=== PATIENT | female | born 1975 | race American Indian/Alaskan Native ===

== ENCOUNTER 2017-03-13 13:33 | Emergency (ER) | payer OTHER ==
[2017-03-13 14:03] VITALS: BP 153/98
--- NOTE | 2017-03-13 16:46 | Emergency Department Report ---
ED General Adult HPI - General Chief complaint: Adult Asthma Stated complaint: ASTHMA/SEVERE HEADACHE Time Seen by Provider: 03/13/17 16:35 Source: patient Mode of arrival: Ambulatory Limitations: No Limitations - History of Present Illness Initial comments: PT c/o asthma exacerbation x 2 days. PT states she has been coughing and wheezing and she can not sleep at night due to the coughing. PT does report post tussive emesis Pt states no relief with singular or inhaler PT states she does not know if she is . Complaint: asthma -: Gradual, days(s) Location: head, chest Consistency: constant Improves with: none Worsens with: none Associated Symptoms: cough, nausea/vomiting. denies: fever/chills Treatments Prior to Arrival: none - Related Data Home Medications Medication Instructions Recorded Confirmed Last Taken Ferrous Sulfate [Ferrous Sulfate 325 mg PO DAILY 03/19/13 01/27/15 03/17/13 12: 00 Oral Liq 220 Mg/5 Ml] Losartan [Cozaar] 50 mg PO QDAY 01/27/15 01/27/15 1 Day Ago Previous Rx's Medication Instructions Recorded Last Taken Type Labetalol [Normodyne TAB] 100 mg PO BID #60 tablet 01/27/15 Unknown Rx Vit-Fe Fumar-FA [ 1 each PO QDAY #30 tablet 01/27/15 Unknown Rx Vitamin] HYDROcodone/APAP 5-325 [[place] 1 each PO Q6HR PRN #6 tablet 03/20/15 Unknown Rx 5/325] Phenazopyridine [Pyridium] 100 mg PO TID #15 tab 03/20/15 Unknown Rx Sulfamethoxazole/Trimethoprim 1 each PO BID #6 tablet 03/20/15 Unknown Rx [Bactrim DS TAB] Allergies Allergy/AdvReac Type Severity Reaction Status Date / Time ibuprofen Allergy Severe Angioedema Verified 03/20/15 01:27 propoxyphene HCl Allergy Unknown Verified 03/19/13 13:39 [From Darvon] codeine AdvReac Intermediate Itching Verified 03/20/15 01:27 ED Review of Systems ROS: Stated complaint: ASTHMA/SEVERE HEADACHE Other details as noted in HPI Comment: All other systems reviewed and negative Constitutional: denies: chills, fever ENT: denies: ear pain, throat pain, congestion Respiratory: cough, shortness of breath, wheezing Cardiovascular: denies: edema Gastrointestinal: denies: abdominal pain Genitourinary: other (pt states she is unsure if she is ) Neurological: headache ED Past Medical Hx - Past Medical History Previous Medical History?: Yes Hx Hypertension: Yes (after last preg) Hx Congestive Heart Failure: No Hx Diabetes: No Hx Asthma: Yes Hx COPD: No - Surgical History Past Surgical History?: Yes Additional Surgical History: laproscopy - Social History Smoking Status: Never Smoker Substance Use Type: None - Medications Home Medications: Home Medications Medication Instructions Recorded Confirmed Last Taken Type Ferrous Sulfate [Ferrous Sulfate 325 mg PO DAILY 03/19/13 01/27/15 03/17/13 12: 00 History Oral Liq 220 Mg/5 Ml] Labetalol [Normodyne TAB] 100 mg PO BID #60 tablet 01/27/15 Unknown Rx Losartan [Cozaar] 50 mg PO QDAY 01/27/15 01/27/15 1 Day Ago History Vit-Fe Fumar-FA [ 1 each PO QDAY #30 tablet 01/27/15 Unknown Rx Vitamin] HYDROcodone/APAP 5-325 [[place] 1 each PO Q6HR PRN #6 tablet 03/20/15 Unknown Rx 5/325] Phenazopyridine [Pyridium] 100 mg PO TID #15 tab 03/20/15 Unknown Rx Sulfamethoxazole/Trimethoprim 1 each PO BID #6 tablet 03/20/15 Unknown Rx [Bactrim DS TAB] ED Physical Exam - General Limitations: No Limitations General appearance: alert, in no apparent distress - Head Head exam: Present: atraumatic, normocephalic, normal inspection - Expanded Head Exam Expanded Head exam: Absent: contusion, hematoma - Eye Eye exam: Present: normal appearance, PERRL, EOMI. Absent: conjunctival injection Pupils: Present: normal accommodation - ENT ENT exam: Present: normal orophraynx, mucous membranes moist, TM's normal bilaterally, normal external ear exam, other (clear post nasal drainage ) - Neck Neck exam: Present: normal inspection, full ROM. Absent: tenderness, lymphadenopathy - Respiratory Respiratory exam: Present: wheezes, chest wall tenderness. Absent: rales, rhonchi, accessory muscle use - Cardiovascular Cardiovascular Exam: Present: regular rate, normal rhythm, normal heart sounds - GI/Abdominal GI/Abdominal exam: Present: soft. Absent: tenderness, guarding, rebound - Extremities Exam Extremities exam: Present: normal inspection, full ROM - Back Exam Back exam: Present: normal inspection, full ROM. Absent: tenderness, CVA tenderness (R), CVA tenderness (L) - Neurological Exam Neurological exam: Present: alert, oriented X3, CN II-XII intact, normal gait - Expanded Neurological Exam Expanded Patient oriented to: Present: person, place, time Speech: Present: fluid speech Best Eye Response ([place]): (4) open spontaneously Best Motor Response ([place]): (6) obeys commands Best Verbal Response ([place]): (5) oriented [place] Total: 15 - Psychiatric Psychiatric exam: Present: normal affect, normal mood - Skin Skin exam: Present: warm, dry, intact, normal color ED Course Vital Signs 03/13/17 14:00 Temperature 99 F Pulse Rate 63 Respiratory 18 Rate Blood Pressure 153/98 O2 Sat by Pulse 100 Oximetry - Reevaluation(s) Reevaluation #1: 03/13/17 16:50 PT aware we will obtain test prior to medication administration Reevaluation #2: 03/13/17 17:26 PT aware of urine results. Reevaluation #3: 03/13/17 18:05 Informed that pt left the ED. - Pulse Oximetry Interpretation Digit-Finger Initial Pulse Oximetry Readin Actions Taken: none ED Medical Decision Making - Differential Diagnosis , uri, asthma Critical Care Time: No Critical care attestation.: If time is entered above; I have spent that time in minutes in the direct care of this critically ill patient, excluding procedure time. ED Disposition Clinical Impression: Cough Disposition: DC-07 LEFT AGAINST MED ADVICE Is pt being admited?: No Does the pt Need Aspirin: No Condition: Undetermined Referrals: PRIMARY CARE, [Primary Care Provider] - 3-5 Days Forms: AMA Form
[2017-03-13 17:17] LABS: Bilirubin,Urine NEG (Negative); Blood,Urine NEG (Negative); Ketones,Urine NEG (Negative); Leukocyte Esterase,Urine TR (Negative); Mucus,Urine FEW /HPF; Nitrite,Urine NEG (Negative); Protein,Urine <15 mg/dL mg/dL (Negative); Urobilinogen,Urine < 2.0 mg/dL (<2.0)
[2017-03-13] MEDS ORDERED: DUONEB *Not for PRN Use IH ONE (17:25)
[2017-03-13] MEDS ORDERED: DELTASONE PO ONE (17:25)
[2017-03-13] MEDS ORDERED: TYLENOL PO ONE (17:25)
== END 2017-03-13 17:41 | disposition left against medical advice (07) ==
LOC: ED 13:33
DX: R05 Cough (principal); I10 Essential (primary) hypertension; J45.901 Unspecified asthma with (acute) exacerbation; Z88.6 Allergy status to analgesic agent; Z88.5 Allergy status to narcotic agent; Z88.8 Allergy status to other drugs, medicaments and biological substances
CPT/HCPCS: 81001; 81025; 99283

== ENCOUNTER 2017-03-14 08:17 | Emergency (ER) | payer OTHER ==
[2017-03-14 08:33] VITALS: BP 146/96
--- NOTE | 2017-03-14 10:24 | Emergency Department Report ---
ED General Adult HPI - General Chief complaint: Adult Asthma Stated complaint: ASTHMA/HEADACHE/COUGHING Time Seen by Provider: 03/14/17 10:07 Source: patient Mode of arrival: Ambulatory Limitations: No Limitations - History of Present Illness Initial comments: Patient is a 41-year-old female past history of asthma who presents with shortness of breath and asthma exacerbation. Patient states that her symptoms have been going on for the last couple days but is gone worse today. She states that she is short of breath and she has a headache. Her headache is a 7 out of 10 it's located bilaterally in the temporal areas and radiates to the front of her head. Nothing seems to make the headache better or worse. It is an achy type of pain. She denies having any nausea or vomiting. She states that she's tried her inhaler today but with no relief. Patient denies having any chest pain. - Related Data Home Medications Medication Instructions Recorded Confirmed Last Taken Ferrous Sulfate [Ferrous Sulfate 325 mg PO DAILY 03/19/13 01/27/15 03/17/13 12: 00 Oral Liq 220 Mg/5 Ml] Losartan [Cozaar] 50 mg PO QDAY 01/27/15 01/27/15 1 Day Ago Previous Rx's Medication Instructions Recorded Last Taken Type Labetalol [Normodyne TAB] 100 mg PO BID #60 tablet 01/27/15 Unknown Rx Vit-Fe Fumar-FA [ 1 each PO QDAY #30 tablet 01/27/15 Unknown Rx Vitamin] HYDROcodone/APAP 5-325 [[place] 1 each PO Q6HR PRN #6 tablet 03/20/15 Unknown Rx 5/325] Phenazopyridine [Pyridium] 100 mg PO TID #15 tab 03/20/15 Unknown Rx Sulfamethoxazole/Trimethoprim 1 each PO BID #6 tablet 03/20/15 Unknown Rx [Bactrim DS TAB] Butalb/Acetamin/Caff 50-325-40 1 tab PO Q6HR PRN #20 tab 03/14/17 Unknown Rx [Fioricet] predniSONE [Deltasone] 20 mg PO BID #10 tablet 03/14/17 Unknown Rx Allergies Allergy/AdvReac Type Severity Reaction Status Date / Time ibuprofen Allergy Severe Angioedema Verified 03/14/17 08:26 propoxyphene HCl Allergy Unknown Verified 03/14/17 08:26 [From Darvon] codeine AdvReac Intermediate Itching Verified 03/14/17 08:26 ED Review of Systems ROS: Stated complaint: ASTHMA/HEADACHE/COUGHING Other details as noted in HPI Constitutional: denies: chills, fever Eyes: denies: eye pain, eye discharge, vision change ENT: denies: ear pain, throat pain Respiratory: shortness of breath. denies: cough, wheezing Cardiovascular: denies: chest pain, palpitations Endocrine: no symptoms reported Gastrointestinal: denies: abdominal pain, nausea, diarrhea Genitourinary: denies: urgency, dysuria, discharge Musculoskeletal: denies: back pain, joint swelling, arthralgia Skin: denies: rash, lesions Neurological: headache. denies: weakness, paresthesias Psychiatric: denies: anxiety, depression Hematological/Lymphatic: denies: easy bleeding, easy bruising ED Past Medical Hx - Past Medical History Hx Hypertension: Yes (after last preg) Hx Congestive Heart Failure: No Hx Diabetes: No Hx Asthma: Yes Hx COPD: No - Surgical History Additional Surgical History: laproscopy - Social History Smoking Status: Never Smoker - Medications Home Medications: Home Medications Medication Instructions Recorded Confirmed Last Taken Type Ferrous Sulfate [Ferrous Sulfate 325 mg PO DAILY 03/19/13 01/27/15 03/17/13 12: 00 History Oral Liq 220 Mg/5 Ml] Labetalol [Normodyne TAB] 100 mg PO BID #60 tablet 01/27/15 Unknown Rx Losartan [Cozaar] 50 mg PO QDAY 01/27/15 01/27/15 1 Day Ago History Vit-Fe Fumar-FA [ 1 each PO QDAY #30 tablet 01/27/15 Unknown Rx Vitamin] HYDROcodone/APAP 5-325 [[place] 1 each PO Q6HR PRN #6 tablet 03/20/15 Unknown Rx 5/325] Phenazopyridine [Pyridium] 100 mg PO TID #15 tab 03/20/15 Unknown Rx Sulfamethoxazole/Trimethoprim 1 each PO BID #6 tablet 03/20/15 Unknown Rx [Bactrim DS TAB] Butalb/Acetamin/Caff 50-325-40 1 tab PO Q6HR PRN #20 tab 03/14/17 Unknown Rx [Fioricet] predniSONE [Deltasone] 20 mg PO BID #10 tablet 03/14/17 Unknown Rx ED Physical Exam - General Limitations: No Limitations General appearance: alert, in no apparent distress - Head Head exam: Present: atraumatic, normocephalic - Eye Eye exam: Present: normal appearance - ENT ENT exam: Present: mucous membranes moist - Neck Neck exam: Present: normal inspection - Respiratory Respiratory exam: Present: normal lung sounds bilaterally, wheezes. Absent: respiratory distress - Cardiovascular Cardiovascular Exam: Present: regular rate, normal rhythm. Absent: systolic murmur, diastolic murmur, rubs, gallop - GI/Abdominal GI/Abdominal exam: Present: soft, normal bowel sounds - Extremities Exam Extremities exam: Present: normal inspection - Back Exam Back exam: Present: normal inspection - Neurological Exam Neurological exam: Present: alert, oriented X3 - Psychiatric Psychiatric exam: Present: normal affect, normal mood - Skin Skin exam: Present: warm, dry, intact, normal color. Absent: rash ED Course Vital Signs 03/14/17 03/14/17 08:26 12:19 Temperature 99.2 F Pulse Rate 57 L Respiratory 18 16 Rate Blood Pressure 146/96 O2 Sat by Pulse 98 Oximetry - Reevaluation(s) Reevaluation #1: 03/14/17 14:15 Patient's shortness of breath has improved and is feeling better we'll send patient home with Fioricet and prednisone. Patient does not need a refill of her inhaler. ED Medical Decision Making - Medical Decision Making Chief medical diagnosis: Asthma exacerbation Differential medical diagnosis: Tension headache, migraine headache We'll give the patient albuterol treatment, prednisone and Fioricet. Patient is feeling better patient had asthma exacerbation and tension headache we'll send patient home with prescription medications and gave patient return precautions come back to the ER. Patient agrees with plan and additional verbal discharge instructions were given. Critical care attestation.: If time is entered above; I have spent that time in minutes in the direct care of this critically ill patient, excluding procedure time. ED Disposition Clinical Impression: Tension headache, Asthma exacerbation Disposition: - TO HOME OR SELFCARE Is pt being admited?: No Does the pt Need Aspirin: No Condition: Stable Instructions: Asthma (ED) Prescriptions: Butalb/Acetamin/Caff 50-325-40 [Fioricet] 1 tab PO Q6HR PRN #20 tab PRN Reason: Headache predniSONE [Deltasone] 20 mg PO BID #10 tablet Referrals: PRIMARY CARE, [Primary Care Provider] - 3-5 Days Time of Disposition: 14:02
[2017-03-14] MEDS ORDERED: PROVENTIL IH ONE (10:52)
[2017-03-14] MEDS ORDERED: DELTASONE PO ONE (10:53)
[2017-03-14] MEDS ORDERED: NORCO 5/325 PO ONE (12:12)
[2017-03-14] MEDS ORDERED: FIORICET PO ONE (12:12)
== END 2017-03-14 14:17 | disposition home or self-care (01) ==
LOC: ED 08:17
DX: J45.901 Unspecified asthma with (acute) exacerbation (principal); G44.209 Tension-type headache, unspecified, not intractable; I10 Essential (primary) hypertension
CPT/HCPCS: 99282; J7512

== ENCOUNTER 2019-04-29 07:59 | Emergency (ER) | payer OTHER ==
[2019-04-29] MEDS ORDERED: IPRATROPIUM/ALBUTEROL SULFATE 3 ML AMPUL.NEB IH ONE (08:05)
[2019-04-29] MEDS ORDERED: ALBUTEROL 2.5 MG/3 ML NEBU IH ONE (08:31)
[2019-04-29] MEDS ORDERED: IPRATROPIUM 0.02% NEBU 2.5 ML IH ONE (08:31)
[2019-04-29] MEDS ORDERED: predniSONE 20 MG TAB PO ONE (08:31)
--- NOTE | 2019-04-29 08:34 | Emergency Department Report ---
ED Asthma HPI - General Chief Complaint: Dyspnea/Respdistress Stated Complaint: COUGHING/SOB Time Seen by Provider: 04/29/19 08:31 Source: patient Mode of arrival: Ambulatory Limitations: No Limitations - History of Present Illness Initial Comments: Mrs. Zarco is a very pleasant 43-year-old female with history of mild intermittent asthma who presents with shortness of breath and nasal congestion. She feels tight as if she can't get enough air. She normally 1 asthma attack mostly at this time of year. She's had shortness of breath since Thursday. Denies fever. She has had asthma since childhood MD Complaint: "asthma attack", shortness of breath -: Gradual Asthma History: childhood onset, history of prior ED visit Severity: moderate Context: recent URI Associated Symptoms: dry cough, other (nasal congestion ) - Related Data Home Medications Medication Instructions Recorded Confirmed Last Taken Ferrous Sulfate [Ferrous Sulfate 325 mg PO DAILY 03/19/13 01/27/15 03/17/13 12:00 Oral Liq 220 Mg/5 Ml] Losartan [Cozaar] 50 mg PO QDAY 01/27/15 01/27/15 1 Day Ago ~01/26/15 Previous Rx's Medication Instructions Recorded Last Taken Type Labetalol [Labetalol 100mg TAB] 100 mg PO BID #60 tablet 01/27/15 Unknown Rx Vit-Fe Fumar-FA [ 1 each PO QDAY #30 tablet 01/27/15 Unknown Rx Vitamin] HYDROcodone/APAP 5-325 [[place] 1 each PO Q6HR PRN #6 tablet 03/20/15 Unknown Rx 5/325] Phenazopyridine [Pyridium] 100 mg PO TID #15 tab 03/20/15 Unknown Rx Sulfamethoxazole/Trimethoprim 1 each PO BID #6 tablet 03/20/15 Unknown Rx [Bactrim DS TAB] Butalb/Acetamin/Caff 50-325-40 1 tab PO Q6HR PRN #20 tab 03/14/17 Unknown Rx [Fioricet] predniSONE [Deltasone] 20 mg PO BID #10 tablet 03/14/17 Unknown Rx ALBUTEROL Inhaler (OR & NICU) 2 puff IH QID PRN #1 device 04/29/19 Unknown Rx [ProAir HFA Inhaler] predniSONE [Deltasone] 3 tab PO QDAY 3 Days #9 tab 04/29/19 Unknown Rx Allergies Allergy/AdvReac Type Severity Reaction Status Date / Time ibuprofen Allergy Severe Angioedema Verified 03/14/17 08:26 propoxyphene HCl Allergy Unknown Verified 03/14/17 08:26 [From [place]] codeine AdvReac Intermediate Itching Verified 03/14/17 08:26 ED Review of Systems ROS: Stated complaint: COUGHING/SOB Other details as noted in HPI Comment: Unobtainable due to pts medical conditions Constitutional: denies: fever, malaise ENT: congestion Respiratory: cough, shortness of breath Cardiovascular: denies: chest pain ED Past Medical Hx - Past Medical History Previous Medical History?: Yes Hx Hypertension: Yes (after last preg) Hx Congestive Heart Failure: No Hx Diabetes: No Hx Asthma: Yes Hx COPD: No - Surgical History Past Surgical History?: Yes Additional Surgical History: laproscopy - Family History Family history: hypertension - Social History Smoking Status: Never Smoker Substance Use Type: None - Medications Home Medications: Home Medications Medication Instructions Recorded Confirmed Last Taken Type Ferrous Sulfate [Ferrous Sulfate 325 mg PO DAILY 03/19/13 01/27/15 03/17/13 12:00 History Oral Liq 220 Mg/5 Ml] Labetalol [Labetalol 100mg TAB] 100 mg PO BID #60 tablet 01/27/15 Unknown Rx Losartan [Cozaar] 50 mg PO QDAY 01/27/15 01/27/15 1 Day Ago History ~01/26/15 Vit-Fe Fumar-FA [ 1 each PO QDAY #30 tablet 01/27/15 Unknown Rx Vitamin] HYDROcodone/APAP 5-325 [[place] 1 each PO Q6HR PRN #6 tablet 03/20/15 Unknown Rx 5/325] Phenazopyridine [Pyridium] 100 mg PO TID #15 tab 03/20/15 Unknown Rx Sulfamethoxazole/Trimethoprim 1 each PO BID #6 tablet 03/20/15 Unknown Rx [Bactrim DS TAB] Butalb/Acetamin/Caff 50-325-40 1 tab PO Q6HR PRN #20 tab 03/14/17 Unknown Rx [Fioricet] predniSONE [Deltasone] 20 mg PO BID #10 tablet 03/14/17 Unknown Rx ALBUTEROL Inhaler (OR & NICU) 2 puff IH QID PRN #1 device 10/11/19 Unknown Rx [ProAir HFA Inhaler] predniSONE [Deltasone] 3 tab PO QDAY 3 Days #9 tab 04/29/19 Unknown Rx ED Physical Exam - General Limitations: No Limitations General appearance: alert, in no apparent distress, other (speaking full word sentences but appears uncomfortable) - Head Head exam: Present: atraumatic, normocephalic - Eye Eye exam: Present: normal appearance - ENT ENT exam: Present: mucous membranes moist - Neck Neck exam: Present: normal inspection, full ROM - Respiratory Respiratory exam: Present: decreased breath sounds, prolonged expiratory. Absent: respiratory distress, wheezes, rales, rhonchi, accessory muscle use - Cardiovascular Cardiovascular Exam: Present: regular rate, normal rhythm, normal heart sounds. Absent: systolic murmur, diastolic murmur, rubs, gallop - GI/Abdominal GI/Abdominal exam: Present: soft, normal bowel sounds. Absent: distended, tenderness, guarding, rebound - Extremities Exam Extremities exam: Present: normal inspection - Back Exam Back exam: Present: normal inspection - Neurological Exam Neurological exam: Present: alert, oriented X3 - Psychiatric Psychiatric exam: Present: normal affect, normal mood - Skin Skin exam: Present: warm, dry, intact, normal color. Absent: rash ED Course Vital Signs 04/29/19 04/29/19 04/29/19 08:08 09:43 09:44 Temperature 98.7 F Pulse Rate 89 Pulse Rate [ 93 H 95 H Posterior Bilateral Throughout] Respiratory 22 Rate Respiratory 22 22 Rate [Posterior Bilateral Throughout] Blood Pressure 113/68 O2 Sat by Pulse 100 Oximetry ED Medical Decision Making - Medical Decision Making Diagnosis mild asthma exacerbation. Clear breath sounds on repeat exam. rx: albuterol MDI, prednisone Critical care attestation.: If time is entered above; I have spent that time in minutes in the direct care of this critically ill patient, excluding procedure time. ED Disposition Clinical Impression: Asthma exacerbation Disposition: DC-01 TO HOME OR SELFCARE Is pt being admited?: No Does the pt Need Aspirin: No Condition: Stable Instructions: Asthma (ED) Prescriptions: predniSONE [Deltasone] 3 tab PO QDAY 3 Days #9 tab ALBUTEROL Inhaler (OR & NICU) [ProAir HFA Inhaler] 2 puff IH QID PRN #1 device PRN Reason: Shortness Of Breath Forms: Work/School Release Form(ED)
[2019-04-29 12:05] VITALS: BP 136/66
== END 2019-04-29 12:02 | disposition home or self-care (01) ==
LOC: ED 07:59
DX: J45.901 Unspecified asthma with (acute) exacerbation (principal)
CPT/HCPCS: 94644; 99282; J7512; 94640

== ENCOUNTER 2019-07-11 12:28 | Emergency (ER) | payer OTHER ==
[2019-07-11] MEDS ORDERED: IPRATROPIUM/ALBUTEROL SULFATE 3 ML AMPUL.NEB IH ONE ×3 (12:40→14:42)
--- NOTE | 2019-07-11 12:52 | Event Note ---
ED Screening Note Date of service: 07/11/19 Time: 12:49 ED Screening Note: C/o SOB and left leg pain x last night +CP hx of asthma, but states this does not feel like here asthma denies hx of DVT/PE, recent long travel, or OCPs sits for extended periods of time No abnormal breath sounds or wheezing noted on exam +dyspnea This initial assessment/diagnostic orders/clinical plan/treatment(s) is/are subject to change based on patients health status, clinical progression and re- assessment by fellow clinical providers in the ED. Further treatment and workup at subsequent clinical providers discretion. Patient/guardian urged not to elope from the ED as their condition may be serious if not clinically assessed and managed. Initial orders include: MAIN labs Dimer US CXR
--- NOTE | 2019-07-11 13:54 | Vascular Lab Report ---
DUPLEX DOPPLER LOWER EXTREMITY VEINS, LEFT INDICATION: Left lower leg pain and shortness of breath since yesterday. TECHNIQUE: Duplex doppler imaging was performed through the veins of the left lower extremity using venous compr ession and other maneuvers. COMPARISON: None available. FINDINGS: Common femoral vein: Negative. Superficial femoral vein: Negative. Popliteal vein: Negative. Calf veins: Negative. Additional findings: There is no evidence of a popliteal cyst or other abnormality. IMPRESSION: No sonographic evidence for DVT in the left lower extremity. Signer Name: Manjit Lee MD Signed: 07/11/2019 1:50 PM Workstation Name: [id number]
[2019-07-11 14:40] LABS: Hematocrit 32.8 % (30.3-42.9); Hemoglobin 10.1 gm/dl (10.1-14.3); Mean Corpuscular HGB Conc 31 % (30-34); Platelet Count 264 K/mm3 (140-440); Red Blood Count 5.25 M/mm3 (3.65-5.03); Red Cell Distribution Width 18.4 % (13.2-15.2)
[2019-07-11 14:46] LABS: Mean Corpuscular Volume 62 fl (79-97)
[2019-07-11 14:58] LABS: Alanine Aminotransferase 9 units/L (7-56); Albumin 4.2 g/dL (3.9-5); BUN/Creatinine Ratio 13; Blood Urea Nitrogen 10 mg/dL (7-17); Calcium 9.2 mg/dL (8.4-10.2); Hemolysis Index 0
--- NOTE | 2019-07-11 15:22 | XRay Report ---
CHEST 2 VIEWS INDICATION: shortness of breath, cough. COMPARISON: None. FINDINGS: Support devices: None. Heart: Enlarged. Pulmonary vasculature: Normal. Lungs/pleura: No acute air space or interstitial disease. No pleural effusion. No pneumothorax. Additional findings: None. IMPRESSION: 1. Cardiomegaly but no CHF. 2. No pneumonia. Signer Name: Breezy Justice MD Signed: 07/11/2019 3:18 PM Workstation Name: [id number]
[2019-07-11 15:34] LABS: Basophils % (Manual) 0 % (0.0-1.8); Total Cells Counted 100
[2019-07-11] MEDS ORDERED: guaiFENesin 100 MG/5 ML ORAL LIQD PO ONE (15:34)
[2019-07-11 15:36] LABS: Anisocytosis 1+; Ovalocytes Few; Target Cells Few
[2019-07-11] MEDS ORDERED: methylPREDNISolone Sod Succinate 125 MG/2 ML INJ IV ONE (15:36)
--- NOTE | 2019-07-11 16:26 | Emergency Department Report ---
ED Shortness of Breath HPI - General Chief Complaint: Adult Asthma Stated Complaint: TC/ASTHMA Time Seen by Provider: 07/11/19 12:43 Source: patient Mode of arrival: Ambulatory Limitations: No Limitations - History of Present Illness Initial Comments: Patient is a 43-year-old female presents emergency room with complaints of shortness of breath that began yesterday. She states that she also has left leg pain. Patient has associated wheezing, cough, congestion, subjective fever, chest tightness. She denies any leg swelling. 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 She denies any recent surgery, recent travel, hormone use. She denies having to be admitted for her asthma or being intubated. She has a past medical history of asthma and hypertension. She has an allergy to ibuprofen, codeine, Darvon. - Related Data Home Medications Medication Instructions Recorded Confirmed Last Taken Ferrous Sulfate [Ferrous Sulfate 325 mg PO DAILY 03/19/13 01/27/15 03/17/13 12:00 Oral Liq 220 Mg/5 Ml] Losartan [Cozaar] 50 mg PO QDAY 01/27/15 01/27/15 1 Day Ago ~01/26/15 Previous Rx's Medication Instructions Recorded Last Taken Type Vit-Fe Fumar-FA [ 1 each PO QDAY #30 tablet 01/27/15 Unknown Rx Vitamin] labetaloL [Labetalol 100mg TAB] 100 mg PO BID #60 tablet 01/27/15 Unknown Rx HYDROcodone/APAP 5-325 [[place]utton 1 each PO Q6HR PRN #6 tablet 03/20/15 Unknown Rx 5/325] Phenazopyridine [Pyridium] 100 mg PO TID #15 tab 03/20/15 Unknown Rx Sulfamethoxazole/Trimethoprim 1 each PO BID #6 tablet 03/20/15 Unknown Rx [Bactrim DS TAB] Butalb/Acetamin/Caff 50-325-40 1 tab PO Q6HR PRN #20 tab 03/14/17 Unknown Rx [Fioricet] predniSONE [Deltasone] 20 mg PO BID #10 tablet 03/14/17 Unknown Rx ALBUTEROL Inhaler (OR & NICU) 2 puff IH QID PRN #1 device 04/29/19 Unknown Rx [ProAir HFA Inhaler] predniSONE [Deltasone] 3 tab PO QDAY 3 Days #9 tab 10/11/19 Unknown Rx Azithromycin [Zithromax TAB] 250 mg PO QDAY 5 Days #6 tablet 07/11/19 Unknown Rx Benzonatate [Tessalon Perles] 100 mg PO Q8HR PRN #12 capsule 07/11/19 Unknown Rx Prednisone [predniSONE 10 mg 10 mg PO .TAPER #1 tab.ds.pk 07/11/19 Unknown Rx (6-Day Pack, 21 Tabs)] guaiFENesin [Robitussin] 10 ml PO Q8HR PRN #1 bottle 07/11/19 Unknown Rx Allergies Allergy/AdvReac Type Severity Reaction Status Date / Time ibuprofen Allergy Severe Angioedema Verified 03/14/17 08:26 propoxyphene HCl Allergy Unknown Verified 03/14/17 08:26 [From Darvon] codeine AdvReac Intermediate Itching Verified 03/14/17 08:26 ED Review of Systems ROS: Stated complaint: TC/ASTHMA Other details as noted in HPI Comment: All other systems reviewed and negative ED Past Medical Hx - Past Medical History Previous Medical History?: Yes Hx Hypertension: Yes (after last preg) Hx Congestive Heart Failure: No Hx Diabetes: No Hx Asthma: Yes Hx COPD: No - Surgical History Past Surgical History?: Yes Additional Surgical History: laproscopy - Social History Smoking Status: Never Smoker Substance Use Type: None - Medications Home Medications: Home Medications Medication Instructions Recorded Confirmed Last Taken Type Ferrous Sulfate [Ferrous Sulfate 325 mg PO DAILY 03/19/13 01/27/15 03/17/13 12:00 History Oral Liq 220 Mg/5 Ml] Losartan [Cozaar] 50 mg PO QDAY 01/27/15 01/27/15 1 Day Ago History ~01/26/15 Vit-Fe Fumar-FA [ 1 each PO QDAY #30 tablet 01/27/15 Unknown Rx Vitamin] labetaloL [Labetalol 100mg TAB] 100 mg PO BID #60 tablet 01/27/15 Unknown Rx HYDROcodone/APAP 5-325 [[place]utton 1 each PO Q6HR PRN #6 tablet 03/20/15 Unknown Rx 5/325] Phenazopyridine [Pyridium] 100 mg PO TID #15 tab 03/20/15 Unknown Rx Sulfamethoxazole/Trimethoprim 1 each PO BID #6 tablet 03/20/15 Unknown Rx [Bactrim DS TAB] Butalb/Acetamin/Caff 50-325-40 1 tab PO Q6HR PRN #20 tab 03/14/17 Unknown Rx [Fioricet] predniSONE [Deltasone] 20 mg PO BID #10 tablet 03/14/17 Unknown Rx ALBUTEROL Inhaler (OR & NICU) 2 puff IH QID PRN #1 device 04/29/19 Unknown Rx [ProAir HFA Inhaler] predniSONE [Deltasone] 3 tab PO QDAY 3 Days #9 tab 04/29/19 Unknown Rx Azithromycin [Zithromax TAB] 250 mg PO QDAY 5 Days #6 tablet 07/11/19 Unknown Rx Benzonatate [Tessalon Perles] 100 mg PO Q8HR PRN #12 capsule 07/11/19 Unknown Rx Prednisone [predniSONE 10 mg 10 mg PO .TAPER #1 tab.ds.pk 07/11/19 Unknown Rx (6-Day Pack, 21 Tabs)] guaiFENesin [Robitussin] 10 ml PO Q8HR PRN #1 bottle 07/11/19 Unknown Rx ED Physical Exam - General Limitations: No Limitations General appearance: alert, in no apparent distress - Head Head exam: Present: atraumatic, normocephalic - Eye Eye exam: Present: normal appearance - ENT ENT exam: Present: mucous membranes moist - Respiratory Respiratory exam: Present: normal lung sounds bilaterally. Absent: respiratory distress, wheezes, rales, rhonchi, stridor, chest wall tenderness, accessory muscle use, decreased breath sounds, prolonged expiratory - Cardiovascular Cardiovascular Exam: Present: regular rate, normal rhythm, normal heart sounds. Absent: systolic murmur, diastolic murmur, rubs, gallop - Extremities Exam Extremities exam: Absent: pedal edema - Neurological Exam Neurological exam: Present: alert, oriented X3 - Psychiatric Psychiatric exam: Present: normal affect, normal mood - Skin Skin exam: Present: warm, dry, intact ED Course Vital Signs 07/11/19 07/11/19 07/11/19 12:43 15:58 17:06 Temperature 99.1 F 97.9 F Pulse Rate 71 85 Respiratory 22 19 17 Rate Blood Pressure 142/87 Blood Pressure 148/74 [Right] O2 Sat by Pulse 100 97 Oximetry ED Medical Decision Making - Lab Data Result diagrams: 07/11/19 14:06 07/11/19 14:06 Lab Results 07/11/19 07/11/19 07/11/19 Range/Units 14:06 14:06 14:06 WBC 4.9 (4.5-11.0) K/mm3 RBC 5.25 H (3.65-5.03) M/mm3 Hgb 10.1 (10.1-14.3) gm/dl Hct 32.8 (30.3-42.9) % MCV 62 L (79-97) fl MCH 19 L (28-32) pg MCHC 31 (30-34) % RDW 18.4 H (13.2-15.2) % Plt Count 264 (140-440) K/mm3 Lymph % (Auto) Celebrity [employer]ur [employer] Personality [place] % (Auto) Celebrity [employer]ur [employer] Personality Eos % (Auto) Celebrity Chef [employer] Personality Baso % (Auto) Celebrity Chef [employer]ur [employer] Personality Lymph # Celebrity Chef [employer] Personality [place] # Celebrity [employer] Personality Eos # Celebrity Chef [employer] Personality Baso # Celebrity [employer] Personality Add Manual Diff Complete Total Counted 100 Seg Neutrophils % Celebrity [employer] Personality Seg Neuts % (Manual) 64.0 (40.0-70.0) % Band Neutrophils % 0 % Lymphocytes % (Manual) 28.0 (13.4-35.0) % Reactive Lymphs % (Man) 0 % Monocytes % (Manual) 6.0 (0.0-7.3) % Eosinophils % (Manual) 2.0 (0.0-4.3) % Basophils % (Manual) 0 (0.0-1.8) % Metamyelocytes % 0 % Myelocytes % 0 % Promyelocytes % 0 % Blast Cells % 0 % Nucleated RBC % Not Reportable Seg Neutrophils # Celebrity Chef [employer] Personality Seg Neutrophils # Man 3.1 (1.8-7.7) K/mm3 Band Neutrophils # 0.0 K/mm3 Lymphocytes # (Manual) 1.4 (1.2-5.4) K/mm3 Abs React Lymphs (Man) 0.0 K/mm3 Monocytes # (Manual) 0.3 (0.0-0.8) K/mm3 Eosinophils # (Manual) 0.1 (0.0-0.4) K/mm3 Basophils # (Manual) 0.0 (0.0-0.1) K/mm3 Metamyelocytes # 0.0 K/mm3 Myelocytes # 0.0 K/mm3 Promyelocytes # 0.0 K/mm3 Blast Cells # 0.0 K/mm3 WBC Morphology Not Reportable Hypersegmented Neuts Not Reportable Hyposegmented Neuts Not Reportable Hypogranular Neuts Not Reportable Smudge Cells Not Reportable Toxic Granulation Not Reportable Toxic Vacuolation Not Reportable Dohle Bodies Not Reportable Pelger-Huet Anomaly Not Reportable Bebe Rods Not Reportable Platelet Estimate Appears normal Clumped Platelets Not Reportable Plt Clumps, EDTA Not Reportable Large Platelets Not Reportable Giant Platelets Not Reportable Platelet Satelliting Not Reportable Plt Morphology Comment Not Reportable RBC Morphology Not Reportable Dimorphic RBCs Not Reportable Polychromasia Not Reportable Hypochromasia Not Reportable Poikilocytosis Not Reportable Anisocytosis 1+ Microcytosis Few Macrocytosis Not Reportable Spherocytes Not Reportable Pappenheimer Bodies Not Reportable Sickle Cells Not Reportable Target Cells Few Tear Drop Cells Not Reportable Ovalocytes Few Helmet Cells Not Reportable Shepherd-[place] Bodies Not Reportable [place] Rings Not Reportable Ana Cells Not Reportable Bite Cells Not Reportable Crenated Cell Not Reportable Elliptocytes Rare Acanthocytes (Spur) Not Reportable Rouleaux Not Reportable Hemoglobin C Crystals Not Reportable Schistocytes Not Reportable Malaria parasites Not Reportable Angel Bodies Not Reportable Hem Pathologist Commnt No D-Dimer (0-234) ng/mlDDU Sodium 140 (137-145) mmol/L Potassium 3.4 L (3.6-5.0) mmol/L Chloride 101.0 (98-107) mmol/L Carbon Dioxide 22 (22-30) mmol/L Anion Gap 20 mmol/L BUN 10 (7-17) mg/dL Creatinine 0.8 (0.7-1.2) mg/dL Estimated GFR > 60 ml/min BUN/Creatinine Ratio 13 % Glucose 84 (65-100) mg/dL Calcium 9.2 (8.4-10.2) mg/dL Total Bilirubin 0.20 (0.1-1.2) mg/dL AST 18 (5-40) units/L ALT 9 (7-56) units/L Alkaline Phosphatase 50 (35-129) units/L Troponin T < 0.010 (0.00-0.029) ng/mL Total Protein 7.8 (6.3-8.2) g/dL Albumin 4.2 (3.9-5) g/dL Albumin/Globulin Ratio 1.2 % HCG, Qual (Negative) 07/11/19 07/11/19 Range/Units 14:06 14:06 WBC (4.5-11.0) K/mm3 RBC (3.65-5.03) M/mm3 Hgb (10.1-14.3) gm/dl Hct (30.3-42.9) % MCV (79-97) fl MCH (28-32) pg MCHC (30-34) % RDW (13.2-15.2) % Plt Count (140-440) K/mm3 Lymph % (Auto) [place] % (Auto) Eos % (Auto) Baso % (Auto) Lymph # [place] # Eos # Baso # Add Manual Diff Total Counted Seg Neutrophils % Seg Neuts % (Manual) (40.0-70.0) % Band Neutrophils % % Lymphocytes % (Manual) (13.4-35.0) % Reactive Lymphs % (Man) % Monocytes % (Manual) (0.0-7.3) % Eosinophils % (Manual) (0.0-4.3) % Basophils % (Manual) (0.0-1.8) % Metamyelocytes % % Myelocytes % % Promyelocytes % % Blast Cells % % Nucleated RBC % Seg Neutrophils # Seg Neutrophils # Man (1.8-7.7) K/mm3 Band Neutrophils # K/mm3 Lymphocytes # (Manual) (1.2-5.4) K/mm3 Abs React Lymphs (Man) K/mm3 Monocytes # (Manual) (0.0-0.8) K/mm3 Eosinophils # (Manual) (0.0-0.4) K/mm3 Basophils # (Manual) (0.0-0.1) K/mm3 Metamyelocytes # K/mm3 Myelocytes # K/mm3 Promyelocytes # K/mm3 Blast Cells # K/mm3 WBC Morphology Hypersegmented Neuts Hyposegmented Neuts Hypogranular Neuts Smudge Cells Toxic Granulation Toxic Vacuolation Dohle Bodies Pelger-Huet Anomaly Bebe Rods Platelet Estimate Clumped Platelets Plt Clumps, EDTA Large Platelets Giant Platelets Platelet Satelliting Plt Morphology Comment RBC Morphology Dimorphic RBCs Polychromasia Hypochromasia Poikilocytosis Anisocytosis Microcytosis Macrocytosis Spherocytes Pappenheimer Bodies Sickle Cells Target Cells Tear Drop Cells Ovalocytes Helmet Cells Shepherd-[place] Bodies [place] Rings Ana Cells Bite Cells Crenated Cell Elliptocytes Acanthocytes (Spur) Rouleaux Hemoglobin C Crystals Schistocytes Malaria parasites Angel Bodies Hem Pathologist Commnt D-Dimer 860.82 H (0-234) ng/mlDDU Sodium (137-145) mmol/L Potassium (3.6-5.0) mmol/L Chloride (98-107) mmol/L Carbon Dioxide (22-30) mmol/L Anion Gap mmol/L BUN (7-17) mg/dL Creatinine (0.7-1.2) mg/dL Estimated GFR ml/min BUN/Creatinine Ratio % Glucose (65-100) mg/dL Calcium (8.4-10.2) mg/dL Total Bilirubin (0.1-1.2) mg/dL AST (5-40) units/L ALT (7-56) units/L Alkaline Phosphatase (35-129) units/L Troponin T (0.00-0.029) ng/mL Total Protein (6.3-8.2) g/dL Albumin (3.9-5) g/dL Albumin/Globulin Ratio % HCG, Qual Negative (Negative) - Radiology Data Radiology results: report reviewed DUPLEX DOPPLER LOWER EXTREMITY VEINS, LEFT INDICATION: Left lower leg pain and shortness of breath since yesterday. TECHNIQUE: Duplex doppler imaging was performed through the veins of the left lower extremity using venous compression and other maneuvers. COMPARISON: None available. FINDINGS: Common femoral vein: Negative. Superficial femoral vein: Negative. Popliteal vein: Negative. Calf veins: Negative. Additional findings: There is no evidence of a popliteal cyst or other abnormality. IMPRESSION: No sonographic evidence for DVT in the left lower extremity. Signer Name: Manjit Lee MD Signed: 07/11/2019 1:50 PM Workstation Name: [id number] Transcribed By: RT Dictated By: Manjit Lee MD Electronically Authenticated By: Manjit Lee MD Signed Date/Time: 07/11/19 1350 DD/ 1349 TD/TT: CTA of the chest with 3D Reconstruction Indication: , SOB, elevated D-dimer Technique: TECHNIQUE: Axial CT images were obtained through the chest after injection of 100 cc of Omnipaque 350 IV contrast. 3 plane MIP reconstructions were produced. All CT scans at this location are performed using CT dose reduction for ALARA by means of automated exposure control. COMPARISON: None Automatic exposure control was utilized in an attempt to reduce radiation dose. Findings: Pulmonary arteries: The main pulmonary artery and right and left pulmonary artery branches fill satisfactorily with contrast. No pulmonary embolus is seen. Lungs: The lungs are clear. Mediastinum: Heart size is normal. No adenopathy is seen. Aorta: Normal in diameter. No dissection seen within limits of this exam. Impression: No pulmonary embolus is seen Signer Name: Nishant Stevens MD Signed: 07/11/2019 6:31 PM Workstation Name: [id number] Transcribed By: SS Dictated By: Nishant Stevens MD Electronically Authenticated By: Nishant Stevens MD Signed Date/Time: 07/11/19 183 DD/ 25 TD/TT: CHEST 2 VIEWS INDICATION: shortness of breath, cough. COMPARISON: None. FINDINGS: Support devices: None. Heart: Enlarged. Pulmonary vasculature: Normal. Lungs/pleura: No acute air space or interstitial disease. No pleural effusion. No pneumothorax. Additional findings: None. IMPRESSION: 1. Cardiomegaly but no CHF. 2. No pneumonia. Signer Name: Rivka Justice MD Signed: 07/11/2019 3:18 PM Workstation Name: [id number] Transcribed By: REF Dictated By: RIVKA JUSTICE MD Electronically Authenticated By: RIVKA JUSTICE MD Signed Date/Time: 07/11/19 1518 - Medical Decision Making Patient is a 43-year-old female presents emergency room with complaints of shortness of breath that began yesterday. She states that she also has left leg pain. Patient has associated wheezing, cough, congestion, subjective fever, chest tightness. She denies any leg swelling. 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 She denies any recent surgery, recent travel, hormone use. She denies having to be admitted for her asthma or being intubated. She has a past medical history of asthma and hypertension. She has an allergy to ibuprofen, codeine, Darvon. vitals are normal. on exam of the LLE there is no edema, no erythema, pt given neb tx prior to my evaluation and breath sounds are clear bilaterally, no w/r/r. labs significant for elevated D- dimer otherwise stable. CXR: 1. Cardiomegaly but no CHF. 2. No pneumonia. CTA chest: No pulmonary embolus is seen. doppler US LLE: No sonographic evidence for DVT in the left lower extremity. Patient given steroids and cough medication and she is feeling much better. Patient appears to have asthma exacerbation and acute bronchitis. Patient given prescription for steroids, Z-Keo, cough medication. advised pt to please take medication as prescribed. Please use your nebulizer treatments and albuterol inhaler. Please follow-up with a primary care doctor in the next 2-3 days. Return to the emergency room immediately for any new or worsening symptoms. - Differential Diagnosis asthma, URI, PNA, bronchitis, PE, PTX, CHF Critical care attestation.: If time is entered above; I have spent that time in minutes in the direct care of this critically ill patient, excluding procedure time. ED Disposition Clinical Impression: Asthma Qualifiers: Asthma severity: unspecified severity Asthma persistence: unspecified Asthma complication type: with acute exacerbation Qualified Code(s): J45.901 - Unspecified asthma with (acute) exacerbation Acute bronchitis Qualifiers: Bronchitis organism: unspecified organism Qualified Code(s): J20.9 - Acute bronchitis, unspecified Disposition: DC-01 TO HOME OR SELFCARE Is pt being admited?: No Does the pt Need Aspirin: No Condition: Stable Instructions: Asthma (ED), Acute Bronchitis (ED) Additional Instructions: please take medication as prescribed. Please use your nebulizer treatments and albuterol inhaler. Please follow-up with a primary care doctor in the next 2-3 days. Return to the emergency room immediately for any new or worsening symptoms. Prescriptions: Prednisone [predniSONE 10 mg (6-Day Pack, 21 Tabs)] 10 mg PO .TAPER #1 tab.ds.pk guaiFENesin [Robitussin] 10 ml PO Q8HR PRN #1 bottle PRN Reason: cough Benzonatate [Tessalon Perles] 100 mg PO Q8HR PRN #12 capsule PRN Reason: cough Azithromycin [Zithromax TAB] 250 mg PO QDAY 5 Days #6 tablet Referrals: PRIMARY CARE, [Primary Care Provider] - 2-3 Days Forms: Work/School Release Form(ED) Time of Disposition: 18:49 Print Language: [place]
[2019-07-11 17:14] VITALS: BP 148/74
--- NOTE | 2019-07-11 18:36 | Cat Scan Report ---
CTA of the chest with 3D Reconstruction Indication: , SOB, elevated D-dimer Technique: TECHNIQUE: Axial CT images were obtained through the chest after injection of 100 cc of Omnipaque 350 IV contrast. 3 plane MIP reconstructions were produced. All CT scans at this location are performed using CT dose reduction for ALARA by means of automated exposure control. COMPARISON: None Automatic exposure control was utilized in an attempt to reduce radiation dose. Findings: Pulmonary arteries: The main pulmonary artery and right and left pulmonary artery branches fill satis factorily with contrast. No pulmonary embolus is seen. Lungs: The lungs are clear. Mediastinum: Heart size is normal. No adenopathy is seen. Aorta: Normal in diameter. No dissection seen within limits of this exam. Impression: No pulmonary embolus is seen Signer Name: Nishant Stevens MD Signed: 07/11/2019 6:31 PM Workstation Name: [id number]
== END 2019-07-11 19:07 | disposition home or self-care (01) ==
LOC: ED 12:28
DX: J45.909 Unspecified asthma, uncomplicated (principal); J20.9 Acute bronchitis, unspecified; I10 Essential (primary) hypertension; Z79.899 Other long term (current) drug therapy
CPT/HCPCS: 36415; 71046; 71275; 80053; 84484; 84703; 85007; 85025; 85379; 93005; 93010; 93971; 94640; 96374; 99284; J2930; Q9967

== ENCOUNTER 2020-09-24 08:46 | Emergency (ER) | payer SELFPAY ==
[2020-09-24 08:52] VITALS: BP 136/75
--- NOTE | 2020-09-24 09:38 | XRay Report ---
CHEST 2 VIEWS INDICATION: cough. COMPARISON: 07/11/2019 FINDINGS: Support devices: None. Heart: Within normal limits. Lungs/pleura: No acute air space or interstitial disease. No pneumothorax. Additional findings: None. IMPRESSION: No acute findings. Signer Name: Mohan Downs Jr, MD Signed: 09/24/2020 9:33 AM Workstation Name: [id number]
--- NOTE | 2020-09-24 10:28 | Emergency Department Report ---
Upper Respiratory HPI - HPI Chief Complaint: Upper Respiratory Infection Stated Complaint: COUGH/TC Time Seen by Provider: 09/24/20 08:50 Duration: 7 years URI Symptoms: Rhinorrhea: No, Sore Throat: No, Ear Pain: No, Cough: Yes, Shortness of Breath: No, Sick Contacts: No, Unable to Take Fluids: No, Urine Output Abnormal: No, Listless Behavior: No Other History: This is a 45-year-old female nontoxic, well nourished in appearance, no acute signs of distress presents to the ED with c/o of nonproductive cough x7 years. Patient denies any sick contact. Patient that she does see her primary care doctor for this condition but was never diagnosed with anything. Patient denies any recent travels, long car, recent hospital stays. Patient denies any calf pain or calf tenderness. Patient denies any chest pain, short of breath, fever, chills, nausea, vomiting, hemoptysis, numbness, tingling, headache or stiff neck. - Home Meds and Allergies Home Medications: Home Medications Medication Instructions Recorded Confirmed Last Taken Ferrous Sulfate [Ferrous Sulfate 325 mg PO DAILY 03/19/13 01/27/15 03/17/13 12:00 Oral Liq 220 Mg/5 Ml] Losartan [Cozaar] 50 mg PO QDAY 01/27/15 01/27/15 1 Day Ago ~01/26/15 Previous Rx's Medication Instructions Recorded Last Taken Type Vit-Fe Fumar-FA [ 1 each PO QDAY #30 tablet 01/27/15 Unknown Rx Vitamin] labetaloL [Labetalol 100mg TAB] 100 mg PO BID #60 tablet 01/27/15 Unknown Rx HYDROcodone/APAP 5-325 [[place] 1 each PO Q6HR PRN #6 tablet 03/20/15 Unknown Rx 5/325] Phenazopyridine [Pyridium] 100 mg PO TID #15 tab 03/20/15 Unknown Rx Sulfamethoxazole/Trimethoprim 1 each PO BID #6 tablet 03/20/15 Unknown Rx [Bactrim DS TAB] Butalb/Acetamin/Caff 50-325-40 1 tab PO Q6HR PRN #20 tab 03/14/17 Unknown Rx [Fioricet] predniSONE [Deltasone] 20 mg PO BID #10 tablet 03/14/17 Unknown Rx Albuterol Mdi (or & Nicu Only) 2 puff IH QID PRN #1 device 04/29/19 Unknown Rx [ProAir HFA Inhaler] predniSONE [Deltasone] 3 tab PO QDAY 3 Days #9 tab 04/29/19 Unknown Rx Azithromycin [Zithromax TAB] 250 mg PO QDAY 5 Days #6 tablet 07/11/19 Unknown Rx Benzonatate [Tessalon Perles] 100 mg PO Q8HR PRN #12 capsule 07/11/19 Unknown Rx Prednisone [predniSONE 10 mg 10 mg PO .TAPER #1 tab.ds.pk 07/11/19 Unknown Rx (6-Day Pack, 21 Tabs)] guaiFENesin [Robitussin] 10 ml PO Q8HR PRN #1 bottle 07/11/19 Unknown Rx Allergies/Adverse Reactions: Allergies Allergy/AdvReac Type Severity Reaction Status Date / Time ibuprofen Allergy Severe Angioedema Verified 03/14/17 08:26 propoxyphene HCl Allergy Unknown Verified 03/14/17 08:26 [From Hectorn] codeine AdvReac Intermediate Itching Verified 03/14/17 08:26 ED Review of Systems ROS: Stated complaint: COUGH/TC Other details as noted in HPI Constitutional: denies: chills, fever Eyes: denies: eye pain, eye discharge, vision change ENT: denies: ear pain, throat pain Respiratory: cough. denies: shortness of breath, wheezing Cardiovascular: denies: chest pain, palpitations Endocrine: no symptoms reported Gastrointestinal: denies: abdominal pain, nausea, diarrhea Genitourinary: denies: urgency, dysuria, discharge Musculoskeletal: denies: back pain, joint swelling, arthralgia Skin: denies: rash, lesions Neurological: denies: headache, weakness, paresthesias Psychiatric: denies: anxiety, depression Hematological/Lymphatic: denies: easy bleeding, easy bruising ED Past Medical Hx - Past Medical History Previous Medical History?: Yes Hx Hypertension: Yes Hx Congestive Heart Failure: No Hx Diabetes: No Hx Asthma: Yes Hx COPD: No - Surgical History Past Surgical History?: Yes Additional Surgical History: laproscopy - Social History Smoking Status: Never Smoker Substance Use Type: None - Medications Home Medications: Home Medications Medication Instructions Recorded Confirmed Last Taken Type Ferrous Sulfate [Ferrous Sulfate 325 mg PO DAILY 03/19/13 01/27/1503/17/13 12:00 History Oral Liq 220 Mg/5 Ml] Losartan [Cozaar] 50 mg PO QDAY 01/27/15 01/27/15 1 Day Ago History ~01/26/15 Vit-Fe Fumar-FA [ 1 each PO QDAY #30 tablet 01/27/15 Unknown Rx Vitamin] labetaloL [Labetalol 100mg TAB] 100 mg PO BID #60 tablet 01/27/15 Unknown Rx HYDROcodone/APAP 5-325 [[place] 1 each PO Q6HR PRN #6 tablet 03/20/15 Unknown Rx 5/325] Phenazopyridine [Pyridium] 100 mg PO TID #15 tab 03/20/15 Unknown Rx Sulfamethoxazole/Trimethoprim 1 each PO BID #6 tablet 03/20/15 Unknown Rx [Bactrim DS TAB] Butalb/Acetamin/Caff 50-325-40 1 tab PO Q6HR PRN #20 tab 03/14/17 Unknown Rx [Fioricet] predniSONE [Deltasone] 20 mg PO BID #10 tablet 03/14/17 Unknown Rx Albuterol Mdi (or & Nicu Only) 2 puff IH QID PRN #1 device 04/29/19 Unknown Rx [ProAir HFA Inhaler] predniSONE [Deltasone] 3 tab PO QDAY 3 Days #9 tab 04/29/19 Unknown Rx Azithromycin [Zithromax TAB] 250 mg PO QDAY 5 Days #6 tablet 07/11/19 Unknown Rx Benzonatate [Tessalon Perles] 100 mg PO Q8HR PRN #12 capsule 07/11/19 Unknown Rx Prednisone [predniSONE 10 mg 10 mg PO .TAPER #1 tab.ds.pk 07/11/19 Unknown Rx (6-Day Pack, 21 Tabs)] guaiFENesin [Robitussin] 10 ml PO Q8HR PRN #1 bottle 07/11/19 Unknown Rx ED Bronchiolitis Physical Exam - Exam General: Vital signs noted. No distress. Alert and acting appropriately. Neurologic: Alert and oriented, no deficits. Musculoskeletal: Unremarkable. ED Bronchiolitis Tests - Testing Testing: CXR: Normal/Negative ED Physical Exam - General Limitations: No Limitations General appearance: alert, in no apparent distress - Head Head exam: Present: atraumatic, normocephalic - Eye Eye exam: Present: normal appearance - Neck Neck exam: Present: normal inspection, full ROM. Absent: tenderness, meningismus, lymphadenopathy - Respiratory Respiratory exam: Present: normal lung sounds bilaterally. Absent: respiratory distress, wheezes, rales, rhonchi, stridor, chest wall tenderness, accessory muscle use, decreased breath sounds, prolonged expiratory - Cardiovascular Cardiovascular Exam: Present: regular rate, normal rhythm, normal heart sounds. Absent: bradycardia, tachycardia, irregular rhythm, systolic murmur, diastolic murmur, rubs, gallop - Extremities Exam Extremities exam: Present: full ROM - Back Exam Back exam: Present: full ROM - Neurological Exam Neurological exam: Present: alert, oriented X3, normal gait - Psychiatric Psychiatric exam: Present: normal affect, normal mood - Skin Skin exam: Present: warm, dry, intact, normal color. Absent: rash ED Course Vital Signs 09/24/20 09/24/20 08:50 08:52 Temperature 97.7 F Pulse Rate 58 L Respiratory 22 Rate Blood Pressure 136/75 O2 Sat by Pulse 98 Oximetry - Reevaluation(s) Reevaluation #1: 09/24/20 10:26 Patient is speaking in full sentences with no signs of distress noted. ED Medical Decision Making - Radiology Data [facility] [address] [place] [address] XRay Report Signed Patient: DARYL DE LA VEGA MR#: [id number] : 1975 Acct:[id number] Age/Sex: 45 / F ADM Date: 09/24/20 Loc: ED Attending Dr: Catalina rashid Physician: ANTONIO LABOY NP Date of Service: 09/24/20 Procedure(s): XR chest routine 2V Accession Number(s): [id number] cc: ANTONIO LABOY NP Fluoro Time In Minutes: CHEST 2 VIEWS INDICATION: cough. COMPARISON: 07/11/2019 FINDINGS: Support devices: None. Heart: Within normal limits. Lungs/pleura: No acute air space or interstitial disease. No pneumothorax. Additional findings: None. IMPRESSION: No acute findings. Signer Name: Mohan Downs Jr, MD Signed: 09/24/2020 9:33 AM Workstation Name: [id number] Transcribed By: TTR Dictated By: MOHAN DOWNS JR, MD Electronically Authenticated By: MOHAN DOWNS JR, MD Signed Date/Time: 09/24/20932 DD/ 7 TD/TT: - Medical Decision Making This is a 45-year-old female that presents with chronic cough. Patient is stable and was examined by me. Chest x-ray has been obtained and dictated by radiologist with normal exam. Patient is notified of x-ray results with no questions noted. Patient does not meet clinical concerns of COVID-19 but patient was instructed and educated on signs and symptoms and to self quarantine and seek medical attention as soon as possible if symptoms does occur. Vitals stable. Patient is nonfebrile and normal heart rate. Patient was instructed Follow-up with a primary care doctor in 3-5 days or if symptoms worsen and continue return to emergency room as soon as possible. At time time of discharge, the patient does not seem toxic or ill in appearance. No acute signs of distress noted. Patient agrees to discharge treatment plan of care. No fur ther questions noted by the patient.nt. Critical care attestation.: If time is entered above; I have spent that time in minutes in the direct care of this critically ill patient, excluding procedure time. ED Disposition Clinical Impression: Chronic cough Disposition: DC-01 TO HOME OR SELFCARE Is pt being admited?: No Does the pt Need Aspirin: No Condition: Stable Instructions: Cough, Adult Additional Instructions: Follow-up with a primary care doctor in 3-5 days or if symptoms worsen and continue return to emergency room as soon as possible. Referrals: MORGAN LAM MD [Referring] - 3-5 Days BLESSING RIVER MD [Staff Physician] - 3-5 Days Time of Disposition: 10:27
== END 2020-09-24 10:53 | disposition home or self-care (01) ==
LOC: ED 08:46
DX: R05 Cough (principal); G89.29 Other chronic pain; I10 Essential (primary) hypertension; J45.909 Unspecified asthma, uncomplicated; Z79.899 Other long term (current) drug therapy; Z88.6 Allergy status to analgesic agent; Z88.8 Allergy status to other drugs, medicaments and biological substances; Z98.890 Other specified postprocedural states
CPT/HCPCS: 71046